=== PATIENT | female | born 1980 | race Two or more races ===

== ENCOUNTER → 2019-03-15 | Outpatient (CLI) | payer BC ==
[~2019-03-15] MED LIST: IOHEXOL 350 MG/ML 100ML IJ ONE; METOPROLOL TARTRATE 1MG/1ML-5ML VIAL IV SCH; NITROGLYCERIN 0.4 MG SL TAB SL ONE
--- NOTE | 2019-03-15 11:50 | NUR ---
CTA STUDY PT PLACED ON CT TABLE. 20G ANGIO-CATH PLACED IN THE LEFT A/C. FLUSHED EASILY WITH NS. INITIAL V/S: BP 115/77 HR 58, RR 16, 02 SAT 97%.
--- NOTE | 2019-03-15 12:20 | NUR ---
CTA STUDY RECEIVED NTG 0.4 MG SL AT 1211. STUDY COMPLETED AT 1215. V/S AT 1215: BP 116/76 HR 63 RR 16 02 SAT98% PT C/O OF BRIEF HEADACHE AFTER RECEIVING NTG. AMBULATED W/O DIFFICULTY AFTER THE STUDY. IV DC'd. PT STATES SHE IS FEELING NORMAL AND WAS RELEASED FROM RADIOLOGY.
== END | disposition home or self-care (01) ==
LOC: CT 11:08
PROVIDERS: ATTEND Internal Medicine
DX: R07.9 Chest pain, unspecified (principal); R06.02 Shortness of breath; I51.7 Cardiomegaly
CPT/HCPCS: 75571; 75574; Q9967